=== PATIENT | female | born 1955 | race Caucasian/White ===

== ENCOUNTER 2018-10-14 15:45 | Emergency (ER) | payer SELFPAY ==
[~2018-10-14] VITALS: Ht 167.6 cm; Wt 99.8 kg
[~2018-10-14 15:45] MED LIST: HYDR25CA5 PO; NAPR-243 PO; TRM50T PO
[2018-10-14] MEDS ORDERED: TRIM/SULFAMETH 160/800 (SEPTRA DS) TAB PO ONE (16:15)
[2018-10-14] MEDS ORDERED: SULF1TAB35 PO (16:15)
--- NOTE | 2018-10-14 16:15 | ED Integumentary General ---
General Chief Complaint: Bite-Animal/Human/Insect Stated Complaint: SPIDER BITE R SIDE OF HEAD Nursing Triage Note: WOUND TO RIGHT SIDE OF HEAD SINCE MONDAY. THINKS IT IS A SPIDER BITE. Source: patient Exam Limitations: no limitations History of Present Illness Date Seen by Provider: Oct 14, 2018 Time Seen by Provider: 16:00 Initial Comments 62-year-old female who presents to emergency room with complaints of a wound to the right side of her scalp that she noticed . She reports that it didn't come to ahead and she "popped it". There is surrounding edema but no area of fluctuation. Location: scalp Associated Symptoms: denies symptoms Allergies and Home Medications Allergies Coded Allergies: aspirin (Unverified Allergy, Mild, 03/31/09) Home Medications Sulfamethoxazole/Trimethoprim 1 Each Tablet, 1 EACH PO BID Prescribed by: ARMIDA CASTRO on 10/14/18 7542 Patient Home Medication List Home Medication List Reviewed: Yes Review of Systems Review of Systems Constitutional: see HPI; No chills, No fever Skin: see HPI, other (abscess to the right side of scalp.) All Other Systems Reviewed Negative Unless Noted: Yes Past Vbkckrj-Kcciuz-Jphmzn Hx Past Med/Social Hx: Reviewed Nursing Past Med/Soc Hx Patient Social History Alcohol Use: Rarely Uses Recreational Drug Use: No (IN THE PAST) Smoking Status: Current Everyday Smoker Recent Foreign Travel: No Contact w/Someone Who Travel: No Recent Infectious Disease Expo: No Past Medical History Surgeries: Yes (EPTOPIC) Orthopedic Respiratory: No Cardiac: No Neurological: No Genitourinary: No Gastrointestinal: No Musculoskeletal: No Endocrine: No HEENT: No Cancer: No Psychosocial: No Family Medical History Reviewed Nursing Family Hx Physical Exam Vital Signs Vital Signs - First Documented 10/14/18 15:51 Temp 98.5 Pulse 80 Resp 16 B/P (MAP) 138/64 (88) Pulse Ox 97 O2 Delivery Room Air Capillary Refill : Less Than 3 Seconds General Appearance: WD/WN, no apparent distress Cardiovascular: normal peripheral pulses, regular rate, rhythm, no edema, no gallop, no JVD, no murmur Respiratory: chest non-tender, lungs clear, normal breath sounds, no respi ratory distress, no accessory muscle use Extremities: normal capillary refill Neurologic/Psychiatric: alert, normal mood/affect, oriented x 3 Skin: normal color, warm/dry Skin Problem Location: scalp (right side) Skin Problem Character: abscess, erythema, thickening, warm Progress/Results/Core Measures Results/Orders Micro Results Microbiology 10/14/18 Gram Stain - Final, Complete 10/14/18 Wound Culture - Final, Complete Staphylococcus aureus My Orders Orders - ARMIDA CASTRO Wound Culture (10/14/18 16:05) Sulfamethoxazole/Trimet Ds Tab (Bactrim (10/14/18 16:15) Vital Signs/I&O 10/14/18 10/14/18 15:51 16:19 Temp 98.5 98.5 Pulse 80 80 Resp 16 16 B/P (MAP) 138/64 (88) 138/64 (88) Pulse Ox 97 97 O2 Delivery Room Air Blood Pressure Mean: 88 Departure Impression Primary Impression: Skin abscess Disposition: 01 HOME, SELF-CARE Condition: Stable/Unchanged Departure-Patient Inst. Referrals: SUKHJINDER RIBEIRO MD (PCP/Family) Primary Care Physician Patient Instructions: Skin Abscess Add. Discharge Instructions: Take medication as directed. Allow the area to continue to drain. Follow-up with your primary care provider within 1 week for recheck. Return back to the emergency room for worsening symptoms or concerns as needed. All discharge instructions reviewed with patient and/or family. Voiced understanding. Scripts Sulfamethoxazole/Trimethoprim (Bactrim Ds Tablet) 1 Each Tablet 1 EACH PO BID for 7 Days, #14 TAB Prov: ARMIDA CASTRO 10/14/18 ARMIDA CASTRO Oct 14, 2018 16:15
[2018-10-14 16:19] VITALS: BP 138/64
== END 2018-10-14 16:19 | disposition home or self-care (01) ==
LOC: EDUNIT# 15:45 → ER 15:47
DX: L02.811 Cutaneous abscess of head [any part, except face] (principal); F17.200 Nicotine dependence, unspecified, uncomplicated; Z88.6 Allergy status to analgesic agent
CPT/HCPCS: 87070; 87077; 87186; 87205; 99283

== ENCOUNTER 2022-01-18 07:03 | Emergency (ER) | payer SELFPAY ==
[~2022-01-18] VITALS: Ht 162 cm; Wt 110.0 kg
[~2022-01-18 07:03] MED LIST changes: +SULF1TAB38 PO
[2022-01-18] MEDS ORDERED: KETOROLAC 60 MG/2 ML VIAL IM ONE (08:15)
[2022-01-18] MEDS ORDERED: RX-NIRMATRELVIR/RITONAVIR (PAXLOVID) #30 TABS PO SCH (08:15)
--- NOTE | 2022-01-18 08:15 | ED Cough/URI ---
General Chief Complaint: COVID19 Suspect/Confirmed Stated Complaint: FEVER,HEADACHE,BODY ACHE,NAUSEA Nursing Triage Note: PT STATES SHE WAS EXPOSED TO COVID MONDAY, S/S STARTED MONDAY WITH HEADACHE, BACK PAIN, FEVER, TYLENOL TAKEN ABOUT AN [employer]. SMOKES, STATES SHE HAD COVID BAD IN THE PAST Source: patient Exam Limitations: no limitations History of Present Illness Date Seen by Provider: Jan 18, 2022 Time Seen by Provider: 07:19 Initial Comments Patient to the ER by private conveyance chief complaint since Monday, 3 days ago she started experiencing headache, malaise, body aches, cough and nausea. She says her significant other was diagnosed on Monday with COVID-19. She has no kidney disease or heart disease. She is down to smoking 1 pack of cigarettes per week. Allergies and Home Medications Allergies Coded Allergies: aspirin (Unverified Allergy, Mild, 03/31/09) Patient Home Medication List Home Medication List Reviewed: Yes Sulfamethoxazole/Trimethoprim (Bactrim Ds Tablet) 1 Each Tablet, 1 EACH PO BID Prescribed by: ARMIDA CASTRO on 10/14/18 1615 Review of Systems Review of Systems Constitutional: chills, fever, malaise EENTM: ear pain (r); No ear discharge Respiratory: cough; No phlegm, No short of breath, No wheezing Cardiovascular: No chest pain, No edema Gastrointestinal: No abdominal pain, No constipation, No diarrhea; nausea; No vomiting Genitourinary: No discharge, No dysuria Musculoskeletal: No back pain, No joint pain Psychiatric/Neurological: Denies Anxiety, Denies Depressed All Other Systems Reviewed Negative Unless Noted: Yes Past Tsxnkzu-Brdjdi-Vxhlmb Hx Patient Social History Tobacco Use?: Yes Tobacco type used: Cigarettes Smoking Status: Current Everyday Smoker Substance use?: No Alcohol Use?: No Immunizations Up To Date Third COVID19 Vaccination Date: YES Past Medical History Surgery/Hospitalization HX: PLATE AND SCREWS IN RT ANKLE Surgeries: Yes (EPTOPIC) Orthopedic Respiratory: No Cardiac: No Neurological: No Genitourinary: No Gastrointestinal: No Musculoskeletal: No Endocrine: No HEENT: No Cancer: No Psychosocial: No Physical Exam Vital Signs - First Documented 01/18/22 07:18 Temp 36.8 Pulse 84 Resp 22 B/P (MAP) 131/88 (102) Pulse Ox 95 O2 Delivery Room Air Capillary Refill : Less Than 3 Seconds Height: 5'6.00" Weight: 220lbs. oz. 99.691334na; 41.00 BMI Method:Stated General Appearance: WD/WN, no apparent distress Eyes: Bilateral Eye Normal Inspection, Bilateral Eye PERRL, Bilateral Eye EOMI HEENT: PERRL/EOMI, normal ENT inspection, TMs normal, pharynx normal Neck: full range of motion, supple, normal inspection Respiratory: lungs clear, normal breath sounds, no respiratory distress, no accessory muscle use Cardiovascular: normal peripheral pulses, regular rate, rhythm Gastrointestinal: non tender, soft Extremities: non-tender, normal inspection, normal capillary refill Neurologic/Psychiatric: alert, normal mood/affect, oriented x 3 Skin: normal color, diaphoresis Progress/Results/Core Measures Suspected Sepsis SIRS Temperature: Pulse: 84 Respiratory Rate: 22 Blood Pressure 131 /88 Mean: 102 Results/Orders Lab Results Laboratory Tests Test 01/18/22 07:25 Range/Units Influenza Type A (RT-PCR) Not Detected Not Detecte Influenza Type B (RT-PCR) Not Detected Not Detecte SARS-CoV-2 RNA (RT-PCR) Detected H Not Detecte My Orders Orders - SWAPNIL DAVILA Covid 19 Inhouse Test (01/18/22 07:33) Influenza A And B By Pcr (01/18/22 07:33) Vital Signs/I&O 01/18/22 07:18 Temp 36.8 Pulse 84 Resp 22 B/P (MAP) 131/88 (102) Pulse Ox 95 O2 Delivery Room Air Capillary Refill : Less Than 3 Seconds Blood Pressure Mean: 102 Progress Note : Time: 08:14 Progress Note Well-appearing adult. We will put her on Paxlovid. We did discuss that it is authorized under an emergency use authorization by the FDA and the risks and benefits and the patient consents to use it. We will also provide her with some nausea medicine and return precautions. Toradol IM for her headache Departure Impression Primary Impression: COVID-19 Disposition: 01 HOME, SELF-CARE Condition: Stable Departure-Patient Inst. Decision time for Depature: 08:16 Referrals: SUKHJINDER RIBEIRO MD (PCP/Family) Primary Care Physician Patient Instructions: COVID-19 (DC), Nirmatrelvir and Ritonavir FDA Fact Sheet Add. Discharge Instructions: Paxlovid twice a day take as directed with food. Drink lots of fluids. Ondansetron 1 or 2 tablets every 6 hours as needed for nausea and/or vomiting. Take lots of rest. Return to the ER for significant worsening symptoms, especially oxygen saturations below 90%. Tylenol 1000 mg every 8 hours as needed for pain. Ibuprofen 800 mg every 8 hours as needed for pain. All discharge instructions reviewed with patient and/or family. Voiced understanding. Scripts Ondansetron (Ondansetron Odt) 4 Mg Tab.rapdis 4 MG PO Q6H PRN for NAUSEA/VOMITING, #12 TAB 0 Refills Prov: SWAPNIL DAVILA 01/18/22 SWAPNIL DAVILA Jan 18, 2022 08:15
[2022-01-18] MEDS ORDERED: ONDA4TAB11 PO (08:18)
[2022-01-18 08:55] VITALS: BP 121/57
== END 2022-01-18 08:55 | disposition home or self-care (01) ==
LOC: EDUNIT# 07:03 → ER 07:07
DX: U07.1 COVID-19 (principal); F17.210 Nicotine dependence, cigarettes, uncomplicated
CPT/HCPCS: 87636; 99283